=== PATIENT | male | born 1980 | race Caucasian/White ===

== ENCOUNTER 2017-01-18 17:54 | Emergency (ER) | payer MEDICARE ==
--- NOTE | ~2017-01-18 | CR126 ---
[facility]. [facility] A Service of [facility] & [facility] RADIOLOGY TEXT RESULTS PATIENT: JEFF DURAND II LOCATION: SED : 76 UNIT #: [id number] AGE: [address]: SHANIA RAMSAY SEX: M ORDER DR: [id number] [place] [id number] E MR#: [id number] Acc #: [id number] NAME: JEFF DURAND, II : 1980 SEX: M STUDY DATE/TIME: 01/18/2017 18:30 UNIT: SED ROOM: STUDY DESCRIPTION: CR Foot Complete Min 3 View Lt Attending Physician: Shania Ramsay Ordering Physician: Physician Non-Staff Primary Care Physician: Naga Mock M.D. MEDICAL IMAGING REPORT This report is preliminary unless electronic signature is present. EXAM Left foot 3 views HISTORY Pain, swelling and redness medially for 3 days. No known injury Three views are submitted. Study does show some mild soft tissue swelling. The bony elements are intact. No fractures, bone destruction or periosteal reaction. There is a small sharply corticated ossicle just above the talus which may represent an old avulsion injury. CONCLUSION Soft tissue swelling. Otherwise negative Dictated by... Doyle Franklin M.D. THIS IS AN ELECTRONICALLY VERIFIED REPORT Doyle Franklin M.D. at 01/22/2017 2:45 PM SHERIDAN/donna TD: 01/18/2017 22:11 JOB #: [id number] MEDICAL IMAGING REPORT Page 1 of 1
--- NOTE | ~2017-01-18 | CR20 ---
[facility]. [facility] A Service of [facility] & [facility] / [facility] RADIOLOGY TEXT RESULTS PATIENT: JEFF DURAND II LOCATION: SED : 76 UNIT #: [id number] AGE: [address]: SHANIA RAMSAY SEX: M ORDER DR: [id number] [place] [id number] E MR#: [id number] Acc #: [id number] NAME: JEFF DURAND, JAYLIN : 1980 SEX: M STUDY DATE/TIME: 01/18/2017 18:30 UNIT: SED ROOM: STUDY DESCRIPTION: CR Ankle Min 3 Views Lt Attending Physician: Shania Ramsay Ordering Physician: Physician Non-Staff Primary Care Physician: Naga Mock M.D. MEDICAL IMAGING REPORT This report is preliminary unless electronic signature is present. EXAM Left ankle 4 views HISTORY Pain, swelling and redness medially 4 views of the ankle are submitted. There appears to be diffuse soft tissue swelling. Bony elements are intact. No fractures, bone destruction or periostitis. CONCLUSION Soft tissue swelling. Otherwise negative. Dictated by... Doyle Franklin M.D. THIS IS AN ELECTRONICALLY VERIFIED REPORT Doyle Franklin M.D. at 01/22/2017 2:45 PM Joya TD: 01/18/2017 22:13 JOB #: [id number] MEDICAL IMAGING REPORT Page 1 of 1
[~2017-01-18 17:54] MED LIST: FLEXERIL10 MG PO; MEDROL4 MG/DOSE- PO; NO MEDICATIONS; PERCOCET 5-3251 TAB PO; PREDNISONE50 MG PO; SKELAXIN PO; VOLTAREN75 MG PO
[2017-01-18 18:29] LABS: BASOPHIL% 0.4 % (0-2.5); EOSINOPHIL# 0.1 X10e3 (0-0.7); EOSINOPHIL% 2.5 % (0.0-7.0); HEMOGLOBIN 15.2 gm/dL (13.0-16.0); LYMPHOCYTE% 34.6 % (17.0-45.0); MEAN CELL VOLUME 94.8 FL (83-96); MEAN CORPUSCULAR HEMOGLOBIN 31.3 PG (28-34); MEAN CORPUSCULAR HGB CONC 33.1 g/dL (30-36); MEAN PLATELET VOLUME 7.3 FL (6.5-11.5); MONOCYTE# 0.5 X10e3 (0-1.0); MONOCYTE% 8.7 % (3.0-12.0); NEUTROPHIL# 3.1 X10e3 (1.5-7.1); NEUTROPHIL% 53.8 % (40-75); PLATELET COUNT 223 X10e3 (140-420); RED BLOOD COUNT 4.86 X10e (3.90-5.60); RED CELL DISTRIBUTION WIDTH 14.8 % (11.0-15.5); WHITE BLOOD COUNT 5.8 X10e3 (4.0-10.5)
[2017-01-18 18:31] LABS: DIFF IND NO
[2017-01-18 18:48] LABS: ALBUMIN SERUM 4.2 g/dL (3.5-5.0); BILIRUBIN, DIRECT 0.1 mg/dL (0.0-0.2); BILIRUBIN,INDIRECT 0.5 mg/dL (0.0-0.9); BILIRUBIN,TOTAL 0.6 mg/dL (0.2-2.0); BUN/CREATININE RATIO 8.57; CALCIUM SERUM 9.1 mg/dL (8.4-10.2); CREATININE SERUM 0.7 mg/dL (0.6-1.4); GLOM FILT RATE Estimated 119.8 mL/min (>60); POTASSIUM 3.4 mmol/L (3.5-5.1); PROTEIN TOTAL SERUM 7.2 g/dL (6.0-8.3)
== END 2017-01-18 20:49 | disposition home or self-care (01) ==
LOC: SED 17:54
PROVIDERS: Physician Assistant
DX: L03.116 Cellulitis of left lower limb (principal); F17.210 Nicotine dependence, cigarettes, uncomplicated; R03.0 Elevated blood-pressure reading, without diagnosis of hypertension
CPT/HCPCS: 36415; 73610; 73630; 80048; 80076; 85025; 96365; 96375; 99284; J1885